=== PATIENT | male | born 1970 | race Caucasian/White ===

== ENCOUNTER 2017-09-29 22:49 | Inpatient (IN) ==
[2017-09-30 01:44] LABS: Basophils % 0.1 %; Eosinophils # 0.1 K/mcL (0.0-0.6); Hemoglobin 6.6 g/dL (12.9-16.9); Immature Granulocytes % 0.5 % (0-4); Lymphocytes # 0.6 K/mcL (0.6-4.6); Lymphocytes % 7.9 %; Mean Corpuscular Hemoglobin 28.6 pg (28.0-33.3); Mean Corpuscular Volume 86.6 fL (83.0-100.0); Mean Platelet Volume 9.2 fL (9.4-12.4); Monocytes # 0.6 K/mcL (0.0-1.3); Monocytes % 7.4 %; Neutrophils # 6.4 K/mcL (1.6-8.9); Platelet Count 208 K/mcL (140-400); Red Blood Count 2.31 M/mcL (4.19-5.50); Red Cell Distribution Width 13.9 % (11.5-14.5); Segmented Neutrophils % 83.1 %
[2017-09-30 01:56] LABS: Albumin 3.3 g/dL (3.5-5.0); Albumin/Globulin Ratio 0.9 (1.1-2.2); Bilirubin,Total 0.5 mg/dL (0.2-1.2); Calcium 8.7 mg/dL (8.6-10.8); Globulin 3.6 g/dL (2.4-3.5); Potassium 4.4 mEq/L (3.5-4.5); Total Protein 6.9 g/dL (6.0-8.3)
[2017-09-30] MEDS ORDERED: Naloxone 0.4 MG/ML INJ IVP PRN (03:21)
[2017-09-30] MEDS ORDERED: Ondansetron 4 MG/2 ML VIAL IVP PRN (03:21)
[2017-09-30] MEDS ORDERED: Acetaminophen 325 MG TABLET PO ONE (03:23)
[2017-09-30] MEDS ORDERED: Furosemide 20 MG/2 ML VIAL IVP PRN (03:30)
[2017-09-30] MEDS ORDERED: *HR* Dextrose 50 % in Water (Syg) 50 ML SYRINGE IVP PRN (03:32)
[2017-09-30] MEDS ORDERED: Dextrose Gel 15 GM PO PRN ×2 (03:32)
[2017-09-30] MEDS ORDERED: D5% in Water 1,000 ML IVC PRN (03:32)
--- NOTE | 2017-09-30 03:40 | Internal Med History&Physical ---
Date of Encounter: 09/30/17 Time of Encounter: 03:00 Assessment and Plan (1) Symptomatic anemia Current visit: Yes Status: Acute 1. Will transfuse PRBC's and monitor H/H. 2. Patient denies any blood loss whatsoever. 3. I suspect anemia is due to chronic disease/CKD. However, MCV is normal. 4. Check Iron studies and fecal occult blood. 5. Patient may need upper/lower endoscopy to rule out GI source of loss. (2) IDDM (insulin dependent diabetes mellitus) Current visit: Yes Status: Chronic 1. Continue home basal insulin and start SSI. 2. Monitor glucose and adjust doses accordingly. (3) CKD (chronic kidney disease) stage 5, GFR less than 15 ml/min Current visit: Yes Status: Chronic 1. Monitor renal function. 2. Continue home meds as appropriate. 3. Consult nephrology to assist in management of kidney disease. (4) DVT prophylaxis Current visit: Yes Status: Acute 1. EPCD's. Internal Medicine - H&P: HPI Chief complaint: short of breath Admitted From: Hospital to Hospital Transfer Plans for Post Hospital Care: Home History of present illness: Mr. Sarabia is a 46 year old male who presents in transfer from [facility] ER. He presented there with shortness of breath, fatigue, and malaise. He was found to be profoundly anemic with a hemoglobin of 6.6. He has chronic anemia, most likely due to his chronic kidney disease. I received a call from [facility] requesting transfer to [facility]. I accepted patient in transfer and assessed him upon arrival. Patient feels well now with his with oxygen by nasal canula. He denies any chest pain. He denies any blood loss whatsoever. In particular, he has had no hematemesis, melena, or hematochezia. He denies any hematuria. He has no nosebleeds. He states he has tried to take IV iron infusion but developed a severe reaction to it, presumably anaphylaxis. Additionally, he was given oral iron and he developed some GI intolerance in the form of nausea and vomiting. He does not recall if he has ever had erythropoietin injections. He follows with Dr. Mercado for his kidney disease. Past Med Surg Social Fam HX - Past Medical History Attestation: Yes The following information was validated with the patient. Source: patient, old records reviewed Medical history: diabetes, hypertension, renal disease Psychiatric history: no psych history - Past Surgical History Surgical History: no surgical history - Social History Smoking Status: Never smoker Smokeless Tobacco Status: No Alcohol use: none Drug use: none Current living situation: Home, With Family Activity Level: Independent ambulation - Family History Mother Hx Family Endocrine Disorder: Yes (DIABETES) Father History Unknown: Yes Internal Medicine - H&P: Meds Amlodipine Besylate 10 mg PO DAILY 02/07/16 [History] Doxazosin Mesylate [Cardura Xl] 4 mg PO DAILY 02/07/16 [History] Ergocalciferol (VITAMIN D2) [Vitamin D2 (50,000 UNIT)] 50,000 unit PO QWEEK [History] Insulin Glargine [Lantus] 60 unit SQ DAILY 02/07/16 [History] Saxagliptin HCl [Onglyza] 5 mg PO DAILY 02/07/16 [History] Simvastatin [Zocor] 40 mg PO HS 02/07/16 [History] Albuterol Sulfate [Proair Respiclick] 90 mcg IH Q4-6H PRN #1 aer.pow.ba [Rx] 3 Allergy/AdvReac Type Severity Reaction Status Date / Time sitagliptin [From ] Allergy Seizure Verified 02/16/17 23:26 iron AdvReac Nausea Verified 02/16/17 23:26 - Constitutional Constitutional: no chills, no fever(s) - EENT Eyes: no blurry vision, no change in vision Ears: no ear pain, no tinnitus Nose, mouth and throat: no nasal congestion, no sinus pressure, no sore throat - Cardiovascular Cardiovascular ROS IM: dyspnea, dyspnea on exertion, no chest pain, no lightheadedness, no palpitations - Respiratory Respiratory: no cough, no hemoptysis, no dyspnea on exertion, no excessive phlegm production, no change in phlegm color - Gastrointestinal Gastrointestinal: no abdominal pain, no diarrhea, no hematemesis, no hematochezia, no melena, no vomiting - Genitourinary Genitourinary ROS male: no dysuria, no flank pain, no hematuria - Musculoskeletal Musculoskeletal ROS IM: no atrophy, no back pain - Integumentary Integumentary IM: no rash, no jaundice - Neurological Neurological ROS: no dizziness, no focal weakness, no frequent falls - Psychiatric Psychiatric: no anxiety, no depression - Endocrine Endocrine IM: no cold intolerance, no heat intolerance, no polydipsia, no polyuria - Hematologic/Lymphatic Hematologic/Lymphatic: no easy bruising, no lymphadenopathy - Allergic/Immunologic Allergic/Immunologic: no wheezing, no GI upset with certain foods - Constitutional Vitals: Temp Pulse Resp BP Pulse Ox 98.1 F 79 20 148/72 94 09/30/17 00:44 09/30/17 00:44 09/30/17 00:44 09/30/17 00:44 09/30/17 00:44 General appearance: Present: cooperative, A&O X 3, pleasant, no acute distress, answers questions appropriately - Head Head exam: Present: atraumatic, normal inspection - Eye Eye exam: Present: EOMI, periorbital tenderness. Absent: scleral icterus, conjuntiva pink (pale) Pupils: Present: normal accommodation - ENT ENT exam: Present: mucous membranes dry, normal exam - Neck Neck exam general surgery: Present: full ROM, supple. Absent: tenderness, nuchal rigidity - Respiratory Respiratory exam: Present: CTAB. Absent: chest wall tenderness, rales, respiratory distress, rhonchi, wheezes - Cardiovascular Cardiovascular exam: Present: RRR, +S1, +S2. Absent: diastolic murmur, systolic murmur - GI/Abdominal GI/Abdominal exam: Present: normal bowel sounds, soft. Absent: hepatomegaly, mass, splenomegaly, tenderness - Extremities Exam Extremities exam: Present: full ROM, warm, radial pulses palpable and symmetrical. Absent: calf tenderness, joint swelling, pedal edema, tenderness - Back Exam Back exam: Present: normal inspection. Absent: CVA tenderness (L), CVA tenderness (R) - Neurological Exam Neurological exam: Present: alert, CN II-XII intact, oriented X3, no focal deficits - Psychiatric Psychiatric exam: Present: normal affect, normal mood - Skin Skin exam: Present: dry, warm. Absent: rash Internal Med - H&P Results - Labs CBC & Chem 7: 09/30/17 01:34 09/30/17 01:34 Labs: Short CBC 09/30/17 Range/Units 01:34 WBC 7.8 (4.3-11.1) K/mcL Hgb 6.6 L (12.9-16.9) g/dL Hct 20.0 L (37.5-50.1) % Plt Count 208 (140-400) K/mcL Neutrophils # 6.4 (1.6-8.9) K/mcL BMP 09/30/17 01:34 Sodium 137 Potassium 4.4 Chloride 105 Carbon Dioxide 21 BUN 72 H Creatinine 4.72 H Glucose 161 H Calcium 8.7 Liver Function 09/30/17 Range/Units 01:34 Total Bilirubin 0.5 (0.2-1.2) mg/dL AST 17 (5-34) Units/L ALT 10 (0-55) Units/L Alkaline Phosphatase 54 (38-126) Units/L Albumin 3.3 L (3.5-5.0) g/dL - EKG Data -: EKG Interpreted by Myself - EKG Data Prior EKG available for review: no EKG comments: 09/30/17 04:10 NSR; no acute changes
[2017-09-30 04:01] LABS: Hemoglobin A1C 6.3 %
[2017-09-30] MEDS ORDERED: 0.9 % Sodium Chloride 500 ML ONE (04:13)
[2017-09-30 04:38] LABS: % Iron Saturation 11 % (20-55); Iron 30 mcg/dL (65-175); Transferrin 203 mg/dL (174-364)
[2017-09-30] MEDS: Pantoprazole 40 MG VIAL IVP SCH ×2 (05:01→16:31)
[2017-09-30] MEDS ORDERED: 0.9 % Sodium Chloride 250 ML ONE (08:52)
[2017-09-30] MEDS ORDERED: NON-FORMULARY MEDICATION 1 EACH EACH (Insulin Glargine [Lantus] 60 UNIT) SQ SCH (09:00)
[2017-09-30] MEDS: Insulin LISPRO 300 UNITS/3 ML VIAL SQ SCH ×3 (09:16→16:31)
[2017-09-30] MEDS: amLODIPine 5 MG TABLET PO SCH (09:17)
[2017-09-30] MEDS: Insulin DETEMIR 100 UNIT/ML X5UNITS SQ SCH (09:17)
--- NOTE | 2017-09-30 09:43 | Event Note ---
Date of Encounter: 09/30/17 Time of Encounter: 09:30 Seen and evaluated at bedside 46 M with Obesity, CKD V, Anemia of chronic disease, DM, HTN he is admitted and being managed for symptomatic anemia He is on the 2nd unit of RBC at my time of review Reports his SOB has improved, as well as cough He has had a trial of oral iron with GI side effects and allergic to Venofr Primary marketing intern is Dr. Mercado Denies new complains Exam: VSS, sitting up in bed in no form of respiratory distress Gen: NAD HEENT: Anisocoria, no jaundice Chest: CTAB Heart: S1, S2 only, no m/g/r Abdomen: Obese, not tender Extremities: trace pitting pedal edema bilaterally Labs and Imaging reviewed: Normocytic anemia, Chem at baseline, A1C 6.3. Iron deficient. BNP 365. CXR with pulm intersitial edema Assessment; Bronchitis Symptomatic anemia Controlled DM CKD V with kidney function at baseline Suspect underlying CHF Plan: Add azithromycin for bronchitis, obtain ECHO. R/O Diastolic CHF. Continue current meds. Nephro eval
[2017-09-30] MEDS: Azithromycin 250 MG TABLET PO SCH (09:58)
--- NOTE | 2017-09-30 11:10 | Nephrology Consult Note ---
Date of Encounter: 09/30/17 Time of Encounter: 11:10 Assessment and Plan (1) CKD (chronic kidney disease) stage 4, GFR 15-29 ml/min Current Visit: Yes Status: Acute Patient with CKD Stage [address] Mercado. His eGFR decline is likely acute kidney injury related to severe anemia. His EGFR may improve after transfusion. Avoid nephrotoxins. Adjust medications for renal function. He does not describe uremic symptoms and has no acute need for renal replacement therapy. (2) Acute kidney injury superimposed on chronic kidney disease Current Visit: Yes Status: Acute See CKD stage IV. (3) Hypertension Current Visit: Yes Status: Acute Continue antihypertensive medications. Adjust antihypertensive medications as needed. Goal blood pressure should be less than 140/90. Qualifiers: Qualified Code(s): I10 - Essential (primary) hypertension (4) Obesity with body mass index (BMI) of 30.0 to 39.9 Current Visit: Yes Status: Acute Per primary care team. (5) Symptomatic anemia Current Visit: Yes Status: Acute Patient with a history of anemia. He has iron deficiency. He has a strange history with iron supplementation. He reports that oral iron gave him indigestion. He denies a rash or other symptoms with oral iron. He is willing to attempt oral iron again. We will start him with ferrous sulfate 325 mg by mouth daily and monitor. He reports receiving an intravenous iron and describes a reaction where he stood up and fell forward after receiving the IV iron. He denies a rash or hypotension, and was not hospitalized for the event. This does not sound like an allergic reaction, but can be sorted out on an outpatient basis. He may need to visit an project design engineer as he would benefit from intravenous iron in the future. He should receive a GI workup for iron deficiency anemia if this is not already been performed. He would probably benefit from KYM, but that can be managed on an outpatient basis. I will also check vitamin B12 and folate. (6) IDDM (insulin dependent diabetes mellitus) Current Visit: Yes Status: Chronic Management per primary team. His goal hemoglobin A1c is less than 7.0. History of Present Illness - Reason for Consult Consult date: 09/30/17 Chronic Kidney Disease - Chief Complaint CKD V - History of Present Illness Mr. Sarabia is a 46 yo man with a history of diabetes and CKD who presented to an outside hospital with dyspnea and was found to have profound anemia. The patient is followed by Dr. Mercado for CKD and anemia. Past Med Surg Social Fam HX - Past Medical History Medical history: diabetes, hypertension, renal disease Psychiatric history: no psych history - Past Surgical History Surgical History: no surgical history - Social History Smoking Status: Never smoker Smokeless Tobacco Status: No Alcohol use: none Drug use: none - Family History Mother Hx Family Endocrine Disorder: Yes (DIABETES) Father History Unknown: Yes Medications and Allergies Amlodipine Besylate 10 mg PO DAILY 02/07/16 [History] Doxazosin Mesylate [Cardura Xl] 4 mg PO DAILY 02/07/16 [History] Ergocalciferol (VITAMIN D2) [Vitamin D2 (50,000 UNIT)] 50,000 unit PO QWEEK [History] Insulin Glargine [Lantus] 60 unit SQ DAILY 02/07/16 [History] Saxagliptin HCl [Onglyza] 5 mg PO DAILY 02/07/16 [History] Simvastatin [Zocor] 40 mg PO HS 02/07/16 [History] Albuterol Sulfate [Proair Respiclick] 90 mcg IH Q4-6H PRN #1 aer.pow.ba [Rx] 3 Allergy/AdvReac Type Severity Reaction Status Date / Time sitagliptin [From ] Allergy Seizure Verified 02/16/17 23:26 iron AdvReac Nausea Verified 02/16/17 23:26 Review of Systems All Systems: reviewed and no additional remarkable complaints except as stated ( as documented in the HPI.) Exam - Vital Signs Vital signs: Initial Vital Signs Temp Pulse Resp BP Pulse Ox 98.1 F 79 20 148/72 94 09/30/17 00:44 09/30/17 00:44 09/30/17 00:44 09/30/17 00:44 09/30/17 00:44 Vital Signs - Last 8 Hours Temp Pulse Resp BP Pulse Ox 09/30/17 10:54 97.9 F 78 18 173/77 96 09/30/17 09:19 98.7 F 76 18 156/72 93 09/30/17 09:04 98.5 F 78 18 133/70 94 09/30/17 07:04 98.4 F 75 17 171/96 96 09/30/17 04:37 98.4 F 75 17 171/96 09/30/17 04:26 98.1 F 79 16 161/75 93 09/30/17 04:22 98.1 F 79 18 157/75 95 09/30/17 04:20 98.1 F 79 16 161/75 93 Intake and Output 09/29/17 09/30/17 09/30/17 23:59 07:59 15:59 Intake Total 310 / 310 120 / 120 Output Total 0 / 0 900 / 900 Balance 310 / 310 -780 / -780 Intake: Oral 120 / 120 Blood Product 310 / 310 0 / 0 Rbcs Leuko Poor As-1 Unit 0 / 0 [id number] Rbcs Leuko Poor As-1 Unit 310 / 310 [id number] Output: Urine 0 / 0 900 / 900 Other: Meal Breakfast Percent of Meal Consumed 100% Weight 124.5 kg Blood Glucose* 142 181 Patient Weight 09/30/17 23:59 Weight 124.5 kg - General Appearance General appearance: well-developed, well-nourished EENT: ATNC Neck: supple Respiratory: clear Cardiology: edema, regular rate, regular rhythm Gastrointestinal: obese Integumentary: warm and dry Neurologic: alert and oriented x3 Musculoskeletal: no cyanosis Psychiatric: mood/affect appropriate Results - Lab Results 09/30/17 01:34 09/30/17 01:34 Most recent lab results Calcium 8.7 mg/dL (8.6-10.8) 09/30/17 01:34 Consult Discharge Plan - Plan Referrals: Pankaj Land, VENEER SHEET REPAIRER [Primary Care Provider] -
[2017-09-30 13:38] LABS: Folate 9.5 ng/mL (7.0-31.4)
[2017-09-30 17:34] LABS: Hematocrit 24.5 % (37.5-50.1); Hemoglobin 8.3 g/dL (12.9-16.9)
[2017-10-01 05:13] LABS: Basophils % 0.1 %; Eosinophils # 0.1 K/mcL (0.0-0.6); Eosinophils % 1.5 %; Hematocrit 24.7 % (37.5-50.1); Hemoglobin 8.1 g/dL (12.9-16.9); Immature Granulocytes % 0.5 % (0-4); Lymphocytes # 0.7 K/mcL (0.6-4.6); Lymphocytes % 8.4 %; Mean Corpuscular HGB Conc 32.8 g/dL (31.6-35.5); Mean Corpuscular Hemoglobin 28.2 pg (28.0-33.3); Mean Corpuscular Volume 86.1 fL (83.0-100.0); Mean Platelet Volume 9.5 fL (9.4-12.4); Monocytes # 0.8 K/mcL (0.0-1.3); Monocytes % 9.2 %; Neutrophils # 6.6 K/mcL (1.6-8.9); Platelet Count 217 K/mcL (140-400); Red Blood Count 2.87 M/mcL (4.19-5.50); Segmented Neutrophils % 80.3 %
[2017-10-01 05:31] LABS: Albumin 3.6 g/dL (3.5-5.0); Bilirubin,Total 0.6 mg/dL (0.2-1.2); Calcium 8.9 mg/dL (8.6-10.8); Globulin 3.5 g/dL (2.4-3.5); Potassium 4.1 mEq/L (3.5-4.5); Total Protein 7.1 g/dL (6.0-8.3)
[2017-10-01] MEDS: Pantoprazole 40 MG VIAL IVP SCH (05:41)
[2017-10-01] MEDS: Insulin LISPRO 300 UNITS/3 ML VIAL SQ SCH ×2 (07:30→11:35)
[2017-10-01] MEDS: Azithromycin 250 MG TABLET PO SCH (08:07)
[2017-10-01] MEDS: amLODIPine 5 MG TABLET PO SCH (08:08)
[2017-10-01] MEDS: Insulin DETEMIR 100 UNIT/ML X5UNITS SQ SCH (08:08)
[2017-10-01] MEDS ORDERED: Cyanocobalamin (B-12) 1,000 MCG TABLET PO SCH (09:00)
--- NOTE | 2017-10-01 09:08 | Nephrology Progress Note ---
Date of Encounter: 10/01/17 Time of Encounter: 09:05 - Assessment and Plan (1) CKD (chronic kidney disease) stage 4, GFR 15-29 ml/min Current Visit: Yes Status: Acute Continue to avoid nephrotoxins. Adjust medications for renal function. Follow up with Dr. Mercado after discharge. (2) Acute kidney injury superimposed on chronic kidney disease Current Visit: Yes Status: Acute Renal function seems to be improving. The acute kidney injury is likely secondary to severe anemia. I recommend checking a BMP within 1-2 weeks and sending the results to his PCP and Dr. Mercado. (3) Hypertension Current Visit: Yes Status: Acute Resume home medications. His blood pressure is not ideal, but is controlled. He is asystematic. Further titration on outpatient basis. Qualifiers: Qualified Code(s): I10 - Essential (primary) hypertension (4) Obesity with body mass index (BMI) of 30.0 to 39.9 Current Visit: Yes Status: Acute Outpatient management. (5) Symptomatic anemia Current Visit: Yes Status: Acute Patient is tolerating oral iron. There is a question regarding his reaction to IV iron, but this can be sorted out on an outpatient basis. He has responded to transfusions. He does not seem to have active bleeding. Further management on an outpatient basis. I recommend starting cyanocobalamin for a borderline low vitamin B12. (6) IDDM (insulin dependent diabetes mellitus) Current Visit: Yes Status: Chronic Goal hemoglobin A1c is less than 7.0. Management per primary team. Subjective Principal diagnosis: Anemia CKD Interval history: Mr. Sarabia is sitting up in bed with no new complaints. He feels much better. He has had no reaction to his oral iron so far. He anticipates discharge later today. Objective - Vital Signs Vital signs: Vital Signs Temp Pulse Resp BP Pulse Ox 10/01/17 07:26 98.3 F 88 17 157/89 96 10/01/17 04:22 98.7 F 81 16 173/85 94 09/30/17 23:58 98.5 F 79 15 168/76 94 09/30/17 19:28 98 F 80 15 159/83 92 09/30/17 16:13 98.1 F 80 18 152/71 92 09/30/17 11:28 98.4 F 78 16 159/82 95 09/30/17 10:54 97.9 F 78 18 173/77 96 Intake and Output 10/01/17 10/01/17 10/01/17 00:59 07:59 15:59 Intake Total Output Total Balance Intake: Oral Output: Urine Other: Meal Percent of Meal Consumed Weight Blood Glucose* Patient Weight 10/01/17 22:59 Weight 122.742 kg - General Appearance General appearance: Present: well-developed, well-nourished EENT: Present: ATNC Neck: Present: supple Cardiology: Present: regular rate Neurologic: Present: alert and oriented x3 Psychiatric: Present: mood/affect appropriate - Lab 10/01/17 04:52 10/01/17 04:52 Most recent lab results Calcium 8.9 mg/dL (8.6-10.8) 10/01/17 04:52 Phosphorus 4.3 mg/dL (2.3-4.7) 10/01/17 04:52 Consult Discharge Plan - Plan Referrals: Pankaj Land, ELECTRIC RANGE SERVICER [Primary Care Provider] -
[2017-10-01 11:21] VITALS: BP 166/83
--- NOTE | 2017-10-01 11:42 | Discharge Summary ---
Date of Encounter: 10/01/17 Time of Encounter: 11:41 - Discharge Diagnosis (1) Symptomatic anemia Priority: Primary Status: Resolved (2) CKD stage 5 secondary to hypertension Priority: Secondary Status: Chronic (3) IDDM (insulin dependent diabetes mellitus) Priority: Secondary Status: Chronic (4) Hypertension Priority: Secondary Status: Acute Qualifiers: Qualified Code(s): I10 - Essential (primary) hypertension (5) Obesity with body mass index (BMI) of 30.0 to 39.9 Priority: Secondary Status: Acute (6) Bronchitis Priority: Primary Status: Acute - Discharge Medications Prescriptions: Azithromycin [Zithromax] 500 mg PO DAILY #3 tablet Cyanocobalamin (B-12) [Vitamin B12] 1,000 mcg PO DAILY #30 tablet Ferrous Sulfate 325 mg PO DAILY@0800 #30 tablet Home Medications: Amlodipine Besylate 10 mg PO DAILY 02/07/16 [History] Doxazosin Mesylate [Cardura Xl] 4 mg PO DAILY 02/07/16 [History] Ergocalciferol (VITAMIN D2) [Vitamin D2 (50,000 UNIT)] 50,000 unit PO QWEEK [History] Simvastatin [Zocor] 40 mg PO HS 02/07/16 [History] Albuterol Sulfate [Proair Respiclick] 90 mcg IH Q4-6H PRN #1 aer.pow.ba [Rx] Calcitriol [Rocaltrol] 0.25 mcg PO DAILY 09/30/17 [History] Carvedilol [Coreg] 6.25 mg PO BID 09/30/17 [History] Insulin Glargine,Hum.rec.anlog [Basaglar Kwikpen U-100] 60 unit SQ DAILY [History] Linagliptin [Tradjenta] 5 mg PO DAILY 09/30/17 [History] hydrALAZINE [HydrALAZINE] 25 mg PO Q8HR 09/30/17 [History] Azithromycin [Zithromax] 500 mg PO DAILY #3 tablet 10/01/17 [Rx] Cyanocobalamin (B-12) [Vitamin B12] 1,000 mcg PO DAILY #30 tablet 10/01/17 [Rx] Docusate [Colace] 100 mg PO BID PRN capsule 10/01/17 [Rx] Ferrous Sulfate 325 mg PO DAILY@0800 #30 tablet 10/01/17 [Rx] Allergies/Adverse Reactions: 3 Allergy/AdvReac Type Severity Reaction Status Date / Time sitagliptin [From Januvia] Allergy Seizure Verified 02/16/17 23:26 iron AdvReac Nausea Verified 02/16/17 23:26 Procedures/tests Complete & Pending: Procedures Performed prior 72 hours Category Date Time Status EV echocardiogram Routine Y 10/01/17 07:53 Ordered Date of admission: 09/30/17 03:21 Primary care physician: Pankaj Land CNP Consults: 09/30/17 03:29 Consult to Physician [CONS] Routine Consulting Provider: Curt Romero Reason for Consult: CKD 5; anemia Call Completed: No Discharging clinician: Cleveland Wilson Anticipated date of discharge: 10/01/17 - Patient Status Disposition: Home, Self-Care Condition: Fair Functional capacity at discharge: independent ambulation Overall status at discharge: patient is back to baseline - Ambulatory Orders Ambulatory Orders: Basic Metabolic Panel [CHEM] Time Frame: 2 Weeks, Facility: [facility], Location: Lab - Discharge Instructions Follow Up With: Pankaj Land CNP [Primary Care Provider] - - Diet and Activity Activity: resume usual activities as tolerated Diet: diabetic diet, low fat, low cholesterol, low salt diet, other (renal) Interval History: See below Hospital course: Mr. Sarabia is a 46 year old male with Obesity, CKD V, Anemia of chronic disease, DM, HTN He was admitted and being managed for symptomatic anemia, s/p 2 units RBC, has improved He has made significant improvement with blood transfusion His work up on admission revealed Normocytic anemia, Chem at baseline, A1C 6.3. Iron deficient. BNP 365. CXR with pulm intersitial edema He was also started on Azithromycon for bronchitis which has resolved significantly He is seen and examined this morning, no new complains itching to be discharged home Some concern for CHF given elevated BNP and interstitial edema on CXR. Patient ia ambulatory without chest complains, states all his symptoms have resolved ECHO was ordered but not done Recommend to do ECHO as outpatient and follow up with PCP He was reviewed by nephrology and cyanocobalamin and feSO4 added to home regimen Follow up with PCP and School Vocational Educator HOme meds have been resumed CBC and Chem within 2 weeks and follow up with own cartridge gauger - Time Spent with Patient Total time spent providing and/or coordinating discharge services: Greater than 30 minutes - Constitutional Vitals: Temp Pulse Resp BP Pulse Ox 97.4 F L 81 19 166/83 95 10/01/17 11:15 10/01/17 11:15 10/01/17 11:15 10/01/17 11:15 10/01/17 11:15 General appearance: Present: cooperative, A&O X 3, pleasant, no acute distress, obese, answers questions appropriately - Head Head exam: Present: atraumatic, normocephalic - Eye Eye exam: Present: PERRL, conjuntiva pink, sclera anicteric Pupils: Present: PERRL - Neck Neck exam general surgery: Present: supple, trachea midline. Absent: lymphadenopathy - Respiratory Respiratory exam: Present: CTAB. Absent: accessory muscle use, rales, rhonchi, wheezes - Cardiovascular Cardiovascular exam: Present: RRR, +S1, +S2. Absent: diastolic murmur, gallop, rubs, systolic murmur - GI/Abdominal GI/Abdominal exam: Present: normal bowel sounds, soft, no peritoneal signs. Absent: distended, tenderness - Extremities Exam Extremities exam: Present: warm, radial pulses palpable and symmetrical. Absent : calf tenderness, cyanotic, pedal edema - Neurological Exam Neurological exam: Present: alert, CN II-XII intact, oriented X3, no focal deficits. Absent: pronater drift, facial droop, speech deficit - Skin Skin exam: Present: dry, intact
== END 2017-10-01 14:10 | disposition home or self-care (01) | DRG 470 ==
LOC: 2ANU
PROVIDERS: ADMIT Pediatrics; ATTEND Internal Medicine

== ENCOUNTER 2020-07-10 06:03 | Observation (INO) ==
[2020-07-10] MEDS ORDERED: Ondansetron 4 MG/2 ML VIAL IVP PRN (08:50)
[2020-07-10] MEDS ORDERED: Naloxone 0.4 MG/ML INJ IVP PRN (08:50)
[2020-07-10] MEDS ORDERED: Dextrose Gel 15 GM/37.5 ML TUBE PO PRN ×2 (08:52)
[2020-07-10] MEDS ORDERED: D5% in Water 1,000 ML IVC PRN (08:52)
[2020-07-10] MEDS ORDERED: *HR* Dextrose 50 % in Water (Vial) 50 ML VIAL IVP PRN (08:52)
[2020-07-10] MEDS ORDERED: Insulin LISPRO 300 UNITS/3 ML VIAL SQ SCH ×6 (09:04→21:00)
[2020-07-10] MEDS ORDERED: Insulin DETEMIR 100 UNIT/ML X5UNITS SQ SCH ×2 (10:15→10:30)
[2020-07-10] MEDS ORDERED: *HR* Heparin 5,000 UNIT/ML VIAL SQ SCH (10:45)
[2020-07-10 11:15] VITALS: BP 151/79
[2020-07-10 15:04] LABS: RBC,Peritoneal Fluid < 2000 RBC/mcL
[2020-07-10 15:08] LABS: Appearance of Peritoneal Fl CLEAR (Clear)
[2020-07-10] MEDS ORDERED: carvediloL 6.25 MG TABLET PO SCH (17:00)
[2020-07-11] MEDS ORDERED: calcitrioL 0.25 MCG CAPSULE PO SCH (09:00)
[2020-07-11] MEDS ORDERED: amLODIPine 5 MG TABLET PO SCH (09:00)
== END 2020-07-10 16:05 | disposition home or self-care (01) ==
LOC: 3NENU
PROVIDERS: ADMIT Student in an Organized Health Care Education/Training Program; ATTEND Student in an Organized Health Care Education/Training Program